=== PATIENT | male | born 1970 | race African-American/Black ===

== ENCOUNTER 2017-05-08 00:36 | Emergency (ER) | payer SELFPAY ==
[~2017-05-08] VITALS: Ht 157.5 cm; Wt 60.0 kg
[2017-05-08] MEDS ORDERED: IBUPROFEN 600MG TABLET PO ONE (04:15)
[2017-05-08 06:07] VITALS: BP 116/80
== END 2017-05-08 06:20 | disposition home or self-care (01) ==
LOC: ER 00:36
DX: S13.4XXA Sprain of ligaments of cervical spine, initial encounter (principal); S39.012A Strain of muscle, fascia and tendon of lower back, initial encounter; V43.52XA Car driver injured in collision with other type car in traffic accident, initial encounter; Y93.89 Activity, other specified; Y92.89 Other specified places as the place of occurrence of the external cause; Y99.8 Other external cause status
CPT/HCPCS: 72040; 72070; 72100; 72170; 99284